=== PATIENT | female | born 1990 | race American Indian/Alaskan Native ===

== ENCOUNTER 2020-03-22 03:05 | Emergency (ER) | payer SELFPAY ==
--- NOTE | 2020-03-22 03:20 | EDM.PDOC ---
ED HPI GENERAL MEDICAL PROBLEM - General Chief Complaint: Drug or Alcohol Abuse Stated Complaint: [facility] Time Seen by Provider: 03/22/20 03:15 Source of Information: Reports: Patient, EMS, Police History Limitations: Reports: No Limitations - History of Present Illness INITIAL COMMENTS - FREE TEXT/NARRATIVE: This is a 29-year-old female. She was found in the hallway of a local hotel unresponsive but still breathing. The ambulance was called. The police were on the scene and they attempted to arouse her she became slightly belligerent and was brought to the ER by the ambulance. She is now fully awake and appears to be much more cooperative. She sedates she does not want to have any blood drawn or did give a urine and she wants to go home. She does have a [id number] who lives in this area that I am encouraged her to call for her to be able to get home. She has been drinking this evening but she does not divulge how much she has been drinking. She denies any other acute symptoms. - Related Data Allergies Allergy/AdvReac Type Severity Reaction Status Date / Time No Known Allergies Allergy Verified 03/22/20 03:10 Home Meds: Home Meds . [No Known Home Meds] 03/22/20 [History] ED ROS GENERAL - Review of Systems Review Of Systems: See Below Reason Not Obtained: Patient denies any any recent symptoms Constitutional: Reports: No Symptoms HEENT: Reports: No Symptoms Respiratory: Reports: No Symptoms Cardiovascular: Reports: No Symptoms Endocrine: Reports: No Symptoms GI/Abdominal: Reports: No Symptoms : Reports: No Symptoms Musculoskeletal: Reports: No Symptoms Skin: Reports: No Symptoms Neurological: Reports: Other (Passed out) Psychiatric: Reports: No Symptoms - Physical Exam Exam: See Below Exam Limited By: No Limitations General Appearance: Alert, WD/WN, No Apparent Distress, Other (The patient is able to ambulate go to the bathroom and back to her room with no difficulty) Eye Exam: Bilateral Eye: Normal Inspection Ears: Normal External Exam Nose: Normal Inspection Throat/Mouth: Normal Inspection, Normal Lips, Normal Voice, No Airway Compromise Head Exam: Normocephalic Neck: Supple Respiratory/Chest: No Respiratory Distress, Lungs Clear, Normal Breath Sounds Cardiovascular: Regular Rate, Rhythm, No Murmur GI/Abdominal: Other (Patient denies any tenderness of her abdomen) Neuro Exam (Abbreviated): Alert, Oriented, Normal Cognition, Normal Gait, No Motor/Sensory Deficits Back Exam: Full Range of Motion Extremities: Normal Range of Motion Psychiatric: Normal Affect, Normal Mood Skin Exam: Warm, Dry Course - Vital Signs Last Recorded V/S: Last Vital Signs Temp 98.3 F 03/22/20 03:13 Pulse 80 03/22/20 03:13 Resp 14 03/22/20 03:13 BP 116/73 03/22/20 03:13 Pulse Ox 100 03/22/20 03:13 - Re-Assessments/Exams Free Text/Narrative Re-Assessment/Exam: 03/22/20 03:24 She has refused any treatment or blood draw or urine examination. Departure - Departure Time of Disposition: 03:19 Disposition: Home, Self-Care 01 Condition: Fair Clinical Impression: Alcohol ingestion - Discharge Information *PRESCRIPTION DRUG MONITORING PROGRAM REVIEWED*: Not Applicable *COPY OF PRESCRIPTION DRUG MONITORING REPORT IN PATIENT LEIGH: Not Applicable Instructions: Alcohol Use Disorder Forms: ED Department Discharge Additional Instructions: Please go home and sleep and no more drinking alcohol for the next 24 hours, if there are any further problems return to the ER Sepsis Event Note (ED) - Focused Exam Vital Signs: Vital Signs Temp Pulse Resp BP Pulse Ox 03/22/20 03:13 98.3 F 80 14 116/73 100
== END 2020-03-22 03:30 | disposition home or self-care (01) ==
LOC: EDBD 03:05 → JD.ED 03:05
DX: F10.129 Alcohol abuse with intoxication, unspecified (principal)
CPT/HCPCS: 99283; 99284

== ENCOUNTER 2020-06-07 18:56 | Emergency (ER) | payer SELFPAY ==
--- NOTE | 2020-06-07 19:49 | EDM.PDOC ---
ED HPI GENERAL MEDICAL PROBLEM - General Chief Complaint: [employer] Problem Stated Complaint: VAGINAL BLEEDING Time Seen by Provider: 06/07/20 19:06 Source of Information: Reports: Patient History Limitations: Reports: No Limitations - History of Present Illness INITIAL COMMENTS - FREE TEXT/NARRATIVE: Ms. Kemp is a very pleasant 29-year-old woman with no chronic medical problems an d no past surgical history, , who now presents the ED with a complaint of unusual vaginal bleeding. She states that her LMP was 05/25/2020 through 05/29/2020, and was normal in quantity and duration. She states that she last had sexual intercourse 2 days ago, then developed painless vaginal bleeding yesterday, 06/06/2020. She states that she has been changing a pad about every 3 hours. She has not passed any clots. No vaginal itch or discharge. No dysuria or urinary frequency. No associated fever, nausea, vomiting, constipation, or diarrhea. No prior similar symptoms. The patient states that while she is sexually active, she does not use any form of control. Here in the ED, the patient is found to be hemodynamically stable, afebrile, saturating 97% on room air. Other than her vaginal bleeding, the patient denies having a recent fever, chills, sore throat, ear pain, nasal or sinus congestion, cough, dyspnea, chest pain, palpitations, nausea, vomiting, constipation, diarrhea, abdominal pain, urinary symptoms, recent weight gain or weight loss, recent bloody bowel movements or black bowel movements, recent joint aches, headaches, or rashes. The patient does not have a PCP or [facility]. She states that she has never undergone a pelvic examination. - Related Data Allergies Allergy/AdvReac Type Severity Reaction Status Date / Time No Known Allergies Allergy Verified 06/07/20 19:08 Home Meds: Home Meds . [No Known Home Meds] 03/22/20 [History] Past Medical History - Past Health History Medical/Surgical History: Denies Medical/Surgical History Social & Family History - Family History Family Medical History: Noncontributory - Tobacco Use Smoking Status *Q: Never Smoker Second Hand Smoke Exposure: No - Caffeine Use Caffeine Use: Reports: None - Alcohol Use Alcohol Use History: Yes Alcohol Use Frequency: Socially - Recreational Drug Use Recreational Drug Use: No - Living Situation & Occupation Living situation: Reports: Single, Alone Occupation: Employed ([employer]) ED ROS GENERAL - Review of Systems Review Of Systems: Comprehensive ROS is negative, except as noted in HPI. ED EXAM, RENAL/ - Physical Exam Exam: See Below Exam Limited By: No Limitations General Appearance: Alert, No Apparent Distress, Thin Eye Exam: Bilateral Eye: EOMI, Normal Inspection Ears: Normal External Exam, Hearing Grossly Normal Nose: Normal Inspection Throat/Mouth: Normal Inspection, Normal Lips, Normal Voice, No Airway Compromise Head: Atraumatic, Normocephalic Neck: Normal Inspection, Full Range of Motion Respiratory/Chest: No Respiratory Distress, Lungs Clear, Normal Breath Sounds, No Accessory Muscle Use Cardiovascular: Normal Peripheral Pulses, Regular Rate, Rhythm, No Edema, No Gallop, No JVD, No Murmur, No Rub GI/Abdominal: Normal Bowel Sounds, Soft, Non-Tender (including suprapubically), No Organomegaly, No Distention, No Abnormal Bruit, No Mass (Female) Exam: Normal External Exam, Vaginal Bleeding (scant amount of blood in the vagina), Other (Tiny blood clot seen within a closed nulliparous cervical os). No: Vaginal Discharge, Vaginal Lesions, Vaginal Tears Rectal (Female) Exam: Deferred Back Exam: Normal Inspection, Full Range of Motion. No: CVA Tenderness (L), CVA Tenderness (R) Extremities: Normal Inspection, Normal Range of Motion, No Pedal Edema, Normal Capillary Refill Neurological: Alert, Oriented, Normal Cognition, No Motor/Sensory Deficits Psychiatric: Normal Affect Skin Exam: Warm, Dry, Intact, Normal Color, No Rash Course - Vital Signs Last Recorded V/S: Last Vital Signs Temp 36.3 C 06/07/20 19:07 Pulse 68 06/07/20 19:07 Resp 16 06/07/20 19:07 BP 126/79 06/07/20 19:07 Pulse Ox 97 06/07/20 19:07 - Orders/Labs/Meds Orders: Active Orders 24 hr Category Date Time Status PATIENT RETYPE [BBK] Routine Lab 06/07/20 20:55 Ordered Labs: Laboratory Tests 06/07/20 06/07/20 06/07/20 Range/Units 18:10 18:10 18:10 WBC 9.97 (3.98-10.04) K/mm3 RBC 4.43 (3.98-5.22) M/mm3 Hgb 13.3 (11.2-15.7) gm/dl Hct 40.7 (34.1-44.9) % MCV 91.9 (79.4-94.8) fl MCH 30.0 (25.6-32.2) pg MCHC 32.7 (32.2-35.5) g/dl RDW Std Deviation 43.1 (36.4-46.3) fL Plt Count 189 (182-369) K/mm3 MPV 11.4 (9.4-12.3) fl Neut % (Auto) 69.8 (34.0-71.1) % Lymph % (Auto) 23.2 (19.3-51.7) % [place] % (Auto) 5.9 (4.7-12.5) % Eos % (Auto) 0.7 (0.7-5.8) Baso % (Auto) 0.2 (0.1-1.2) % Neut # (Auto) 6.96 H (1.56-6.13) K/mm3 Lymph # (Auto) 2.31 (1.18-3.74) K/mm3 [place] # (Auto) 0.59 H (0.24-0.36) K/mm3 Eos # (Auto) 0.07 (0.04-0.36) K/mm3 Baso # (Auto) 0.02 (0.01-0.08) K/mm3 HCG, Quant < 1.0 mIU/mL Blood Type O POSITIVE - Re-Assessments/Exams Free Text/Narrative Re-Assessment/Exam: 06/07/20 19:47 As above, the patient had her usual menstrual period from 05/25/2020 through 05/29/2020, then developed vaginal bleeding yesterday, 1 day after having sexual intercourse. No pain or clots, and no other symptoms. She does not use any type of control. No prior similar symptoms. She is hemodynamically stable afebrile. Her physical exam is entirely benign. The patient will be taken to the gynecologic examination room that I can inspect her cervix. In the meantime, I have ordered a CBC, quantitative hCG, and ABO- Rh. 06/07/20 19:57 On pelvic examination, there was only a scant amount of blood in the vagina, with a tiny blood clot seen within a closed nulliparous cervical os. No vaginal lesions seen. No suggestion of a vaginal infection. 06/07/20 21:29 The patient's CBC is unremarkable. Her quantitative hCG is <1.0. Her blood type is O-Pos. 06/07/20 21:32 Test results discussed with the patient. As above, today's work-up is entirely unremarkable, and is not consistent with a recent or spontaneous . I will discharge her home with a referral to Gynecology. Departure - Departure Time of Disposition: 21:34 Disposition: Home, Self-Care 01 Condition: Good Clinical Impression: Dysfunctional uterine bleeding - Discharge Information *PRESCRIPTION DRUG MONITORING PROGRAM REVIEWED*: Not Applicable *COPY OF PRESCRIPTION DRUG MONITORING REPORT IN PATIENT LEIGH: Not Applicable Referrals: PCP,None [Primary Care Provider] - Norman Fields MD [Physician] - Forms: ED Department Discharge Additional Instructions: You were seen in the emergency room after developing painless vaginal bleeding 8 days after finishing your last normal menstrual period. Work-up in the ER included blood work, which returned unremarkable. You are not anemic. You have not recently been . Your blood type is O-positive. Based on your history, physical exam, and ER tests, you are suffering from dysfunctional uterine bleeding = abnormal vaginal bleeding not in sync with your normal menstrual periods. Because you sexually active and has never undergone a Pap smear, and to address your dysfunctional uterine bleeding, we recommend that you follow-up with the [facility] Dr. Norman Fields at the next available appointment. If any other problems, please do not hesitate to return to the ER. Sepsis Event Note (ED) - Evaluation Sepsis Screening Result: No Definite Risk - Focused Exam Vital Signs: Vital Signs Temp Pulse Resp BP Pulse Ox 06/07/20 19:07 36.3 C 68 16 126/79 97 - My Orders Last 24 Hours: My Active Orders 06/07/20 20:55 PATIENT RETYPE [BBK] Routine - Assessment/Plan Last 24 Hours: My Active Orders 06/07/20 20:55 PATIENT RETYPE [BBK] Routine
== END 2020-06-07 21:30 | disposition home or self-care (01) ==
LOC: JD.ED 18:56
DX: N93.8 Other specified abnormal uterine and vaginal bleeding (principal)
CPT/HCPCS: 36415; 84702; 85025; 86900; 86901; 99282; 99284